=== PATIENT | male | born 1945 | race Caucasian/White ===

== ENCOUNTER 2020-07-27 09:58 | Outpatient (CLI) | payer MEDICARE, SELFPAY | END 2020-07-27 09:59 | disposition home or self-care (01) | LOC: ANHCOVIDVC 09:58 | PROVIDERS: PCP Family Medicine Adolescent Medicine | DX: Z23 Encounter for immunization (principal) | CPT/HCPCS: 0001A; 91300 ==

== ENCOUNTER 2020-08-17 10:01 | Outpatient (CLI) | payer MEDICARE, SELFPAY | END 2020-08-17 10:02 | disposition home or self-care (01) | LOC: ANHCOVIDVC 10:01 | PROVIDERS: PCP Family Medicine Adolescent Medicine | DX: Z23 Encounter for immunization (principal) | CPT/HCPCS: 0002A; 91300 ==

== ENCOUNTER → 2021-12-06 10:39 | Outpatient (CLI) | payer MEDICARE, SELFPAY ==
--- NOTE | ~2021-12-06 | MR_ITS ---
EXAMINATION: MR cervical spine wo con DATE: 12/06/2021 11:14 INDICATION: Bilateral hand weakness. TECHNIQUE: Magnetic resonance imaging (MRI) of the cervical spine was performed without intravenous c ontrast. Sequences included sagittal T2-weighted FSE, sagittal T2-weighted FS FSE, sagittal T1-weight ed FSE, axial MERGE, and axial T2-weighted FSE. COMPARISON: None FINDINGS: There is 9 degrees dextrocurvature of cervicothoracic spine. Vertebral body heights are nor mal. There is severely decreased disc height at C4-C5 and C5-C6 with interbody fusion at C5-C6. The s faith cord signal intensity is normal. The following disc levels are specifically discussed: C2-C3: The disc does not extend beyond the endplate margin. There is no uncovertebral joint osteoarth ritis. There is moderate right and severe left facet joint osteoarthritis. There is mild left neural foraminal stenosis. There is no central canal stenosis. C3-C4: The disc is bulging. There is mild right and moderate left uncovertebral joint osteoarthritis. There is mild right and severe left facet joint osteoarthritis. There is mild left neural foraminal stenosis. There is mild central canal stenosis. C4-C5: The disc is bulging. There is severe bilateral uncovertebral joint osteoarthritis. There is mi ld right and severe left facet joint osteoarthritis. There is moderate right and mild left neural for aminal stenosis. There is mild central canal stenosis. C5-C6: There is moderate bilateral uncovertebral joint hypertrophy. There is mild bilateral facet jami nt osteoarthritis. There is moderate right and mild left neural foraminal stenosis. There is mild claire tral canal stenosis. C6-C7: There is a central extrusion. There is no uncovertebral joint osteoarthritis. There is mild bi lateral facet joint osteoarthritis. There is no neural foraminal stenosis. There is mild central torito l stenosis. C7-T1: There is a central extrusion. There is no uncovertebral joint osteoarthritis. There is moderat e right and severe left facet joint osteoarthritis. There is mild left neural foraminal stenosis. The re is mild central canal stenosis. IMPRESSION: 1. Severe cervical spondylosis. Reviewed, dictated and finalized at location A.
== END ==
PROVIDERS: PCP Family Medicine Adolescent Medicine; Visit Provider Family Medicine Adolescent Medicine
DX: M62.81 Muscle weakness (generalized) (principal); M47.892 Other spondylosis, cervical region
CPT/HCPCS: 72141

== ENCOUNTER 2022-02-02 08:26 | Outpatient (CLI) | payer MEDICARE, SELFPAY ==
--- NOTE | 2022-02-02 11:30 | NEURO_ITS ---
Impression: # Complains of increasing weakness. 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 # Mild right Carpal Tunnel Syndrome. # Mild left ulnar neuropathy across the elbow. # Needle/EMG exam neurogenic without acute fibrillation. # Clinical correlation recommended; Findings compatible with severe axonal neuropathy. Nerve Conduction Studies Anti Sensory Summary Table Stim Site NR Peak (ms) P-T Amp (?V) Site1 Site2 Delta-P (ms) Dist (cm) Gary (m/s) Left Median Anti Sensory (2-3nd Digit) Wrist 4.4 20.9 Wrist 2-3nd Digit 4.4 14.0 32 Wrist 4.3 32.5 Wrist 2-3nd Digit 4.4 14.0 32 Right Median Anti Sensory (2-3nd Digit) Wrist 3.8 23.0 Wrist 2-3nd Digit 3.8 14.0 37 Wrist 3.7 47.6 Wrist 2-3nd Digit 3.8 14.0 37 Left Radial Anti Sensory (Base 1st Digit) Wrist 2.2 21.6 Wrist Base 1st Digit 2.2 0.0 Right Radial Anti Sensory (Base 1st Digit) Wrist 2.1 11.9 Wrist Base 1st Digit 2.1 0.0 Left Ulnar Anti Sensory (5th Digit) Right Ulnar Anti Sensory (5th Digit) Wrist 2.6 24.7 Wrist 5th Digit 2.6 14.0 54 Motor Summary Table Stim Site NR Onset (ms) O-P Amp (mV) Site1 Site2 Delta-0 (ms) Dist (cm) Gary (m/s) Left Median Motor (Abd Poll Brev) Wrist 4.1 0.5 Elbow Wrist 9.7 29.0 30 Elbow 13.8 0.1 Right Median Motor (Abd Poll Brev) Wrist 4.7 1.0 Elbow Wrist 6.0 33.0 55 Elbow 10.7 0.6 Left Ulnar Motor (Abd Dig Minimi) Wrist 3.0 3.8 A Elbow Wrist 7.1 33.0 46 A Elbow 10.1 2.4 B Elbow Wrist 4.3 22.0 51 B Elbow 7.3 2.9 Right Ulnar Motor (Abd Dig Minimi) Wrist 2.9 4.8 A Elbow Wrist 5.9 32.0 54 A Elbow 8.8 3.7 F Wave Studies NR F-Lat (ms) L-R F-Lat (ms) Left Median (Mrkrs) (Abd Poll Brev) DISPERSED RESPONSE NR Right Median (Mrkrs) (Abd Poll Brev) 33.10 Left Ulnar (Mrkrs) (Abd Dig Min) DISPERSED RESPONSE NR Right Ulnar (Mrkrs) (Abd Dig Min) 34.45 EMG Side Muscle Nerve Root Ins Act Fibs Amp Dur Recrt Comment Right 1stDorInt Ulnar C8-T1 Nml Nml Nml Nml Reduced Right Ext Indicis Radial (Post Int) C7-8 Nml Nml Nml Nml Reduced Right Ext Digitorum Radial (Post Int) C7-8 Nml Nml Nml Nml Reduced Right BrachioRad Radial C5-6 Nml Nml Nml Nml Reduced Right PronatorTeres Median C6-7 Nml Nml Nml Nml Reduced Right Abd Poll Brev Median C8-T1 Nml Nml Nml Nml Reduced Left 1stDorInt Ulnar C8-T1 Nml Nml Nml Nml Reduced Left Ext Indicis Radial (Post Int) C7-8 Nml Nml Nml Nml Reduced Left Ext Digitorum Radial (Post Int) C7-8 Nml Nml Nml Nml Reduced Left BrachioRad Radial C5-6 Nml Nml Nml Nml Reduced Left PronatorTeres Median C6-7 Nml Nml Nml Nml Reduced Left Abd Poll Brev Median C8-T1 Nml Nml Nml Nml Reduced MTDD
== END 2022-02-02 08:27 | disposition home or self-care (01) ==
PROVIDERS: PCP Family Medicine Adolescent Medicine; Visit Provider Family Medicine Adolescent Medicine
DX: R53.1 Weakness (principal); G56.01 Carpal tunnel syndrome, right upper limb; G56.22 Lesion of ulnar nerve, left upper limb
CPT/HCPCS: 95886; 95911

== ENCOUNTER → 2022-02-16 09:05 | Outpatient (CLI) | payer MEDICARE, SELFPAY ==
--- NOTE | ~2022-02-16 | MR_ITS ---
EXAMINATION: MR lumbar spine wo con DATE: 02/16/2022 10:13 INDICATION: Muscle atrophy. Weakness. TECHNIQUE: Magnetic resonance imaging (MRI) of the lumbar spine was performed without intravenous con trast. Sequences included sagittal T2-weighted FSE, sagittal T2-weighted FS FSE, sagittal T1-weighted FSE, and axial T2-weighted FSE. COMPARISON: None FINDINGS: There is 6 degrees levocurvature of thoracolumbar spine. There is 3 mm retrolisthesis of L1 on L2, L2 on L3, and L3 on L4. There is mild chronic anterior wedging of T11 and T12 vertebral maria r s. There is moderately decreased disc height at L1-L2, mildly decreased disc height at L2-L3, severel y decreased disc height at L3-L4, and mildly decreased disc height at L4-L5 and L5-S1. The distal spi nal cord signal intensity is normal. The conus medullaris is at L1. The following disc levels are spe cifically discussed: L1-L2: The disc is bulging and has an annular fissure. There is mild bilateral facet joint osteoarthr itis. There is mild bilateral neural foraminal stenosis. There is mild central canal stenosis. L2-L3: The disc is bulging and has an annular fissure. There is mild bilateral facet joint osteoarthr itis. There is mild bilateral neural foraminal stenosis. There is mild central canal stenosis. L3-L4: The disc is bulging and has an annular fissure. There is mild right and severe left facet join t osteoarthritis. There is moderate bilateral neural foraminal stenosis. There is mild central canal stenosis. L4-L5: The disc is bulging and has an annular fissure. There is severe bilateral facet joint osteoart hritis. There is mild right and moderate left neural foraminal stenosis. There is mild central canal stenosis. L5-S1: The disc is bulging and has an annular fissure. There is severe bilateral facet joint osteoart hritis. There is mild bilateral neural foraminal stenosis. There is mild central canal stenosis. IMPRESSION: 1. Severe lumbar spondylosis. Reviewed, dictated and finalized at location A.
--- NOTE | ~2022-02-16 | MR_ITS ---
EXAMINATION: MR thoracic spine wo con DATE: 02/16/2022 10:12 INDICATION: Muscle atrophy. Weakness. TECHNIQUE: Magnetic resonance imaging (MRI) of the thoracic spine was performed without intravenous c ontrast. Sagittal localizer T1-weighted FSE of the cervical spine was obtained. Thoracic spine sequen gustavo included sagittal T2-weighted FSE, sagittal T1-weighted FSE, sagittal T2-weighted FS FSE, and axi al T2-weighted FSE. COMPARISON: None FINDINGS: There is 15 degrees levoscoliosis of upper thoracic spine. There is mild chronic anterior w edging of T7, T8, T11, and T12 vertebral bodies. There is mildly decreased disc height at T8-T9. At C 7-T1, there is a central extrusion with mild central canal stenosis. At T4-T5, there is a right centr al extrusion with mild central canal stenosis. At T5-T6, there is a central extrusion with mild centr al canal stenosis. There is multilevel facet joint osteoarthritis, severe on the right at T2-T3. On t he right, there is mild neural foraminal stenosis at T2-T3 and T3-T4. On the left, there is mild neur al foraminal stenosis at T2-T3. The spinal cord signal intensity is normal. IMPRESSION: 1. Mild thoracic spondylosis. 2. Thoracic levoscoliosis. Reviewed, dictated and finalized at location A.
--- NOTE | ~2022-02-16 | MR_ITS ---
EXAMINATION: MR brain/brain stem wo con DATE: 02/16/2022 10:12 INDICATION: Muscle atrophy. Weakness. TECHNIQUE: Magnetic resonance imaging (MRI) of the brain and brainstem was performed without intraven ous contrast. COMPARISON: None. FINDINGS: There is an acute infarct in the katty on the left with involvement of the corticospinal tra cts. There are scattered areas of nonspecific increased T2-weighted signal intensity in the cerebral white matter. There is no intracranial hemorrhage or abnormal mass lesion. There is an old infarct in left parietal lobe. The ventricles are normal in size. There is mucosal thickening in the paranasal sinuses. There is complete opacification of sphenoid sinus and the left posterior ethmoid sinuses. Th e orbits are normal. There is a small left mastoid effusion. IMPRESSION: 1. Acute infarct in the katty on the left. 2. 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 3. Moderate nonspecific cerebral white matter disease, which likely represents chronic small vessel i schemic disease. Reviewed, dictated and finalized at location A. IMPRESSION: 1. Acute infarct in the katty on the left. 2. 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 3. Moderate nonspecific cerebral white matter disease, which likely represents chronic small vessel ischemic disease.
== END ==
PROVIDERS: PCP Family Medicine Adolescent Medicine; Visit Provider Student in an Organized Health Care Education/Training Program
DX: M62.81 Muscle weakness (generalized) (principal); M47.894 Other spondylosis, thoracic region; M47.896 Other spondylosis, lumbar region; R93.0 Abnormal findings on diagnostic imaging of skull and head, not elsewhere classified
CPT/HCPCS: 70551; 72146; 72148

== ENCOUNTER → 2022-02-24 10:03 | Outpatient (CLI) | payer MEDICARE, SELFPAY ==
--- NOTE | ~2022-02-24 | CT_ITS ---
EXAMINATION: CTA brain carotid DATE: 02/24/2022 11:13 INDICATION: Acute stroke. TECHNIQUE: Computed tomographic angiography (CTA) of the head was performed without and with 100 mL O [id number] intravenous contrast. CTA of the neck was performed with intravenous contrast. Automated exposure control and iterative reconstruction technique were employed. The dose-length product was 1 679.56 mGy-cm. Maximum intensity projection and volume rendered 3D-reconstructions were created by mile nuñez technologist on a separate workstation. COMPARISON: Brain MRI 02/16/2022 FINDINGS: HEAD CTA: There are scattered areas of low attenuation in the cerebral white matter. There is a subac [place] infarct in the katty. There is a small old infarct in left parietal lobe. There is no intracranial hemorrhage or abnormal intracranial mass lesion. The ventricles are normal in size. There is mucosal thickening in the paranasal sinuses including complete opacification in sphenoid sinus and the poste rior left ethmoid sinuses. The mastoid air cells are normal. The orbits are normal. The vertebral art eries are codominant. There is no significant stenosis of basilar artery or the posterior cerebral ar teries. There is no significant stenosis of the intracranial internal carotid arteries or anterior or middle cerebral arteries. Anterior communicating artery is normal. The posterior communicating arter ies are normal. There is no aneurysm. NECK CTA: There are no pathologically enlarged lymph nodes. There is no significant stenosis of the v ertebral arteries. There is plaque in the proximal internal carotid arteries. There is 0% stenosis of the proximal right internal carotid artery relative to normal distal artery lumen diameter (NASCET c riteria). There is 10% stenosis of the proximal left internal carotid artery relative to normal dista l artery lumen diameter. There is severe cervical spondylosis. There is interbody fusion at C5-C6. IMPRESSION: 1. Subacute infarct in the katty. 2. 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 3. Moderate nonspecific cerebral white matter disease, which likely represents chronic small vessel i schemic disease. 4. No aneurysm or significant intracranial arterial stenosis. 5. 0% stenosis of the proximal right internal carotid artery relative to normal distal artery lumen d iameter (NASCET criteria). 6. 10% stenosis of the proximal left internal carotid artery relative to normal distal artery lumen d iameter. Reviewed, dictated and finalized at location A. ION PLANNER IMPRESSION: 1. Subacute infarct in the katty. 2. 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 3. Moderate nonspecific cerebral white matter disease, which likely represents chronic small vessel ischemic disease. 4. No aneurysm or significant intracranial arterial stenosis. 5. 0% stenosis of the proximal right internal carotid artery relative to normal distal artery lumen diameter (NASCET criteria). 6. 10% stenosis of the proximal left internal carotid artery relative to normal distal artery lumen diameter.
[2022-02-24 10:33] LABS: Estimated Glomerular Filt Rate 59
== END ==
PROVIDERS: PCP Family Medicine Adolescent Medicine; Visit Provider Student in an Organized Health Care Education/Training Program
DX: I63.9 Cerebral infarction, unspecified (principal); I65.22 Occlusion and stenosis of left carotid artery
CPT/HCPCS: 70496; 70498; Q9967

== ENCOUNTER 2022-02-28 14:14 | Outpatient (CLI) | payer MEDICARE, SELFPAY ==
--- NOTE | 2022-02-28 14:32 | ECHO_ITS ---
Patient Info Name: Tayo Rose Age: 76 years : 1945 Gender: Male Ht: 71 in Wt: 210 lbs BSA: 2.21 m2 HR: 50 bpm BP: 159 / 95 mmHg Heart Rhythm: Sinus Rhythm Technical Quality: Fair Exam Date: 02/28/2022 2:33 PM Exam Location: [facility] Patient Status: Outpatient Admit Date: 02/28/2022 Staff Ordering Physician: Sally Trevino MD Sewer Bricklayer: Candace Johnson RDCS Attending Provider: Sally Trevino MD Exam Type: CA echo doppler w bubble study Study Info Indications - acute stroke Complete two-dimensional, color flow and Doppler transthoracic echocardiogram is performed. Contrast/Agitated Saline Contrast/Ag. Saline: Agitated Saline Amount: 20.00 ml Existing IV Access: Yes IV Access Condition: patent with no signs of infiltration Summary 1. Complete two-dimensional, color flow and Doppler transthoracic echocardiogram is performed. 2. Left ventricular chamber dimension is normal. 3. Left ventricular systolic function is normal, estimated at 60-65%. 4. The left ventricular diastolic function is grade I diastolic dysfunction. 5. E/e' 11 is mildly elevated. 6. Left atrial chamber dimension is mildly enlarged. 7. There is mild aortic valve sclerosis. 8. There is mild mitral valve regurgitation. 9. There is mild tricuspid valve regurgitation. 10. No pulmonary hypertension, estimated pulmonary arterial systolic pressure is 31 mmHg. Left Ventricle E/e' 11 is mildly elevated. Left ventricular chamber dimension is normal. Left ventricular systolic function is normal, estimated at 60-65%. The left ventricular diastolic function is grade I diastolic dysfunction. Right Ventricle Right ventricular systolic function is normal and with normal TAPSE 2.3 cm. Right ventricular chamber dimension is normal. Left Atria Left atrial chamber dimension is mildly enlarged. Right Atria Right atrial chamber dimension is normal. Atrial Septum Agitated saline injection with and without valsalva maneuver opacified right side cardiac chambers without shunt to left side cardiac chambers. Intact interatrial septum visualized by 2D and agitated saline imaging. Aortic Valve The aortic valve is trileaflet. There is mild aortic valve sclerosis. There is no aortic valve stenosis. There is no aortic valve regurgitation. Pulmonic Valve There is no pulmonic regurgitation. Mitral Valve There is no mitral valve stenosis. There is mild mitral valve regurgitation. Tricuspid Valve There is mild tricuspid valve regurgitation. No pulmonary hypertension, estimated pulmonary arterial systolic pressure is 31 mmHg. Pericardium/Pleural There is no pericardial effusion. Inferior Vena Cava Normal inferior vena cava with >50% collapse upon inspiration consistent with normal right atrial pressure, 5 mmHg. Aorta The aortic root size at the sinus of Valsalva is normal. Left Ventricular Outflow Tract Name Value Normal LVOT 2D LVOT Diameter 2.0 cm LVOT Doppler LVOT Peak Gradient 4 mmHg LVOT Mean Gradient
--- NOTE | 2022-02-28 15:15 | ECG_ITS ---
Measurements Intervals [place] Rate: 51 P: 30 KS: 173 QRS: -1 QRSD: 108 T: 33 QT: 444 QTc: 411 Interpretive Statements SINUS BRADYCARDIA BORDERLINE R WAVE PROGRESSION, ANTERIOR LEADS INFERIOR INFARCT, AGE INDETERMINATE BORDERLINE ST ABNORMALITY- HIGH LATERAL LEADS ABNORMAL ECG NO PREVIOUS ECG AVAILABLE FOR COMPARISON Electronically Signed On 02-28-2022 16:54:46 CIRCULATION SUPERVISOR by Hair Marley D.O.
== END 2022-02-28 14:15 | disposition home or self-care (01) ==
PROVIDERS: PCP Family Medicine Adolescent Medicine; Visit Provider Student in an Organized Health Care Education/Training Program
DX: I63.9 Cerebral infarction, unspecified (principal); R94.31 Abnormal electrocardiogram [ECG] [EKG]; I34.0 Nonrheumatic mitral (valve) insufficiency; I36.1 Nonrheumatic tricuspid (valve) insufficiency
CPT/HCPCS: 93005; 93306; 96375

== ENCOUNTER 2022-05-05 10:20 | Outpatient (CLI) | payer MEDICARE, SELFPAY ==
--- NOTE | ~2022-05-05 | XR_ITS ---
Bilateral Hands Technique: Bilateral PA, oblique, and lateral views, and ball-catcher's view were obtained. Clinical History: Abnormal immunological findings Findings: No acute fracture or dislocation is seen. Mild degenerative change of the DIP joints noted diffusely, worst at the bilateral first and fifth DIP joints.. Soft tissues are unremarkable. Impression: Osteoarthritis of the DIP joints bilaterally, as detailed above. Reviewed, dictated and finalized at location M. N FACTORS ENGINEER Impression: Osteoarthritis of the DIP joints bilaterally, as detailed above.
--- NOTE | ~2022-05-05 | XR_ITS ---
XR cervical spine 4-5V DATE: 05/05/2022 10:50 INDICATION: Muscle atrophy, weakness TECHNIQUE: AP, open-mouth, lateral, swimmer views COMPARISON: 12/06/2021 MR cervical spine FINDINGS: There is levoscoliosis of the cervical and upper thoracic spine. C1 and C2 are normally aligned and the odontoid process is intact. There is moderate loss of interspace height at C4-5 and severe loss of interspace height at C5-6. No fracture or dislocation or locked facet or prevertebral soft tissue swelling. There is uncovertebral joint spurring in the mid and lower cervical spine. There is degenerative arrington ge at the apophyseal joints. Degenerative spurring of the thoracic spine. Surgical clips are noted in the lower anterior neck right of midline. IMPRESSION: Cervical spondylosis Levoscoliosis Reviewed, dictated and finalized at location B. ARCHITECT
[2022-05-05 11:01] LABS: Uric Acid 4.3 mg/dL (3.5-8.5)
[2022-05-05 11:57] LABS: Vitamin D 25 Hydroxy 31.9 ng/mL
[2022-05-08 20:56] LABS: SM Antibody <1.0; SM/RNP Antibody <1.0
[2022-05-09 21:10] LABS: Anti Cyclic Citrullinated Pept <16 Units (<20)
[2022-05-10 12:29] LABS: Hexagonal Phase Confirm Negative (Negative); Lupus dRVVT Screen 42 sec (<=45); PTT-LA Screen 41 sec (<=40)
== END 2022-05-05 10:21 | disposition home or self-care (01) ==
PROVIDERS: PCP Family Medicine Adolescent Medicine; Visit Provider Internal Medicine
DX: M47.812 Spondylosis without myelopathy or radiculopathy, cervical region (principal); M47.816 Spondylosis without myelopathy or radiculopathy, lumbar region; R76.8 Other specified abnormal immunological findings in serum; M19.90 Unspecified osteoarthritis, unspecified site; E55.9 Vitamin D deficiency, unspecified; M19.041 Primary osteoarthritis, right hand; M19.042 Primary osteoarthritis, left hand
CPT/HCPCS: 36415; 72050; 73130; 82306; 84550; 85598; 85613; 85730; 86146; 86200; 86225; 86235

== ENCOUNTER 2023-04-18 13:15 | Outpatient (RCR) | payer MEDICARE, SELFPAY ==
[2023-03-21 10:17] VITALS: BP_SYST 80; BP_SYST 90
--- NOTE | 2023-03-21 11:48 | OPREHPOC ---
Outpatient Therapy Plan of Care This is a Multidisciplinary Plan of Care that may contain components documented by all disciplines (PT, OT, and ST.) OT Problem 1 OT Problem #1 Knowledge Deficit OT Goal 1 Goal 1. Patient/spouse to be independent with instructed materials. Target Visit 5 OT Problem 2 OT Problem #2 Impaired Functional ADLs OT Goal 1 Goal 1. Patient to report increased independence with self-feeding with AE/DME. 2. Patient to report increased independence with bathing and shower transfers with AE/DME. Target Visit 5 OT Problem 3 OT Problem #3 Impaired Strength OT Goal 1 Goal 1. Patient to be able to complete x20 reps of the elbow, forearm, wrist, and hand ROM exercises independently. Target Visit 5
--- NOTE | 2023-03-21 11:48 | OTOPEVAL1 ---
Assessment and note entered by Deven Quiroga, OTR/L, CHT Evaluation Information Diagnosis ALS Subjective Information Patient reports ADL decline due to progressive UE weakness. Reports it's been getting more difficult to reach his face to groom and feed himself. He is right handed. They also report difficulties with showers - getting in/out of the shower, sit/ stands from the shower chair. They have ordered a new shower chair that is higher with arms - have not received it yet. helps with dressing, shaving, and bathing. reports he's had 2 falls in the past month. Reported Pain Level Pain Score 0: Self Report Assessment OT Clinical Summary Patient referred to OT with dx of ALS. He has been experiencing a decline in ADL independence due to progressive weakness. Skilled OT indicated for education on ADL modifications, adaptive equipment , and DME recommendations. Patient also has had multiple falls in the last month. Will be requesting PT orders as well. Plan of Care Interventions Therapeutic Exercise,Therapeutic Activities,Self- Care/Home Management OT Services Indicated Yes Treatment Frequency and 1x/week for 4 weeks Duration These treatments will address the objective and functional deficits as defined above. The patient will be advanced safely and appropriately in order for the patient to progress towards his/her prior level of function. Additional exercises will be introduced and as well as a comprehensive home exercise program upon discharge, if needed, ?to ensure carryover of functional gains achieved in the clinic. This treatment plan has been reviewed and agreement upon by the patient.
[2023-04-18 13:22] VITALS: BP_SYST 90
--- NOTE | 2023-04-18 14:18 | OTOPDC ---
Assessment and note entered by NISREEN Shaikh/Artem, T Discharge Notification 04/18/23 Assessment Status Discharge Diagnosis ALS Subjective Information Patient and his report they have a shower chair with arms for the shower now, but they just got it put together and he has not used it. He is using adaptive equipment for feeding (built up utensil handles). He reports he continues to struggle with self feeding, dressing, and sit/ stand transfers. Reported Pain Level Pain Score 0: Self Report Assessment OT Clinical Summary Patient referred to OT with dx of ALS. Adaptive techniques for feeding, dressing, bathing, toileting have been addressed and recommendations for adaptive equipment have been discussed. Patient's has purchased a few items so far. Discussed various functional activities for patient to continue to preserve what function he has. Patient and his verbalize good understanding of all materials. D/C OT. Plan of Care OT Services Indicated No
== END 2023-06-04 09:30 | disposition home or self-care (01) ==
LOC: ANHOT 13:15
PROVIDERS: PCP Family Medicine Adolescent Medicine; Visit Provider Family Medicine Adolescent Medicine
DX: G12.21 Amyotrophic lateral sclerosis (principal)
CPT/HCPCS: 97110; 97165; 97530; 97535

== ENCOUNTER 2023-11-21 16:25 | Inpatient (IN) | payer MEDICARE, SELFPAY ==
[2023-11-21] VITALS (21 sets, daily range): BP systolic 130–152; BP diastolic 68–89; PULSE 72–83; RESP 16–39; TEMP 35.8–36.3; O2SAT 90–96
--- NOTE | ~2023-11-21 | XR_ITS ---
EXAMINATION: XR chest 1V portable DATE: 11/23/2023 14:58 INDICATION: Shortness of breath. TECHNIQUE: A single frontal view of the chest was obtained. COMPARISON: Chest 2 views 11/21/2023, CT abdomen and pelvis 11/21/2023 FINDINGS: There is mild elevation of right hemidiaphragm. There is mild atelectasis in the lower lung zones. No pleural effusion or pneumothorax. The heart size is normal. There are surgical clips in ri ght neck. Surgical clips in the right upper quadrant are likely from cholecystectomy. IMPRESSION: 1. Mild atelectasis in the lower lung zones. Reviewed, dictated and finalized at location A.
--- NOTE | ~2023-11-21 | CT_ITS ---
CT abdomen pelvis wo con Ordering provider: Beckie Frazier PA-C History: 78 years Male with . hematuria, r/o obstructive uropathy . Comparison: February 05, 2018 Technique: CT abdomen and pelvis without oral IV and without oral contrast. Automated exposure contro l and iterative reconstruction technique were employed. The dose-length product was 866.42 mGy-cm. Findings: VISUALIZED LOWER CHEST: Minimal atelectatic changes in the lung bases. Narrowing of the bronchi which may indicate bronchomalacia. UPPER ABDOMINAL ORGANS: Liver: Normal. Gallbladder: Status post cholecystectomy. Spleen: Normal. Stomach/duodenum: Slightly thickened wall of the stomach. Clinical evaluation advised. Pancreas: Normal. Adrenals: Normal. Kidneys: Right kidney upper pole stones with the largest measures 7 mm. No hydronephrotic changes see n bilaterally. No stones in the left side. PELVIC ORGANS: The bladder shows tiny stones near to the ureterovesical junction on the right side. Slightly enlarged prostate. BOWEL AND MESENTERY: Colon: Mild sigmoid diverticulosis without diverticulitis. Fecal material is loaded in the colon sugg estive of constipation.No evidence of appendicitis. Small Bowel: Normal. No obstruction. Peritoneum/mesentery: No free air or free fluid. No mesenteric lymphadenopathy. RETROPERITONEUM: Mild atheromatous disease of the abdominal aorta. No retroperitoneal lymphadenopat hy. MUSCULOSKELETAL: Superficial soft tissues: Bilateral fat containing inguinal hernias. Otherwise, The superficial soft tissues are normal. Bones: Age appropriate degenerative changes of the spine. IMPRESSION: 1. Right kidney stones with no hydronephrotic changes. 2. Urinary bladder stones near to the right ureterovesical junction. Possibility of a stone in the i ntramural ureter cannot be excluded. 3. Constipation. 4. Minimal atelectatic changes in the lung bases. Reviewed, dictated and finalized at location A. IMPRESSION: 1. Right kidney stones with no hydronephrotic changes. 2. Urinary bladder stones near to the right ureterovesical junction. Possibili ty of a stone in the intramural ureter cannot be excluded. 3. Constipation. 4. Minimal atelectatic changes in the lung bases.
--- NOTE | ~2023-11-21 | XR_ITS ---
XR chest 2V Ordering provider: John Sanchez MD History: 78 years Male with . sob, ALS . Comparison: July 04, 2016 FINDINGS: MEDIASTINUM: The cardiac silhouette is not enlarged. LUNGS: No infiltrates, effusions or pneumothorax. OTHER: No free air under the diaphragm. Degenerative changes of the spine. IMPRESSION: No acute cardiopulmonary pathology. Reviewed, dictated and finalized at location A.
--- NOTE | 2023-11-21 16:31 | ECG_ITS ---
Test Date: 2023-11-21 16:49:05 Measurements Intervals [place] Rate: 73 P: 5 CT: 142 QRS: -28 QRSD: 92 T: 22 QT: 387 QTc: 429 Interpretive Statements SINUS RHYTHM POSSIBLE ANTERIOR MYOCARDIAL INFARCTION , OF INDETERMINATE AGE [30 ms Q WAVE IN V3/V4, OR R < 0.2 mV IN V4] INFERIOR MYOCARDIAL INFARCTION , OF INDETERMINATE AGE [40+ ms Q WAVE AND/OR ST/T ABNORMALITY IN II/aVF] No previous ECG available for comparison Electronically Signed On 11-21-2023 17:17:08 CDT by Hair Rodarte M.D.
[2023-11-21 18:53] LABS: Basophils Absolute Auto 0.1 K/mm3 (0.0-0.1); Basophils Percent Auto 0.7 % (0.2-1.2); Eosinophils Absolute Auto 0.2 K/mm3 (0-0.3); Eosinophils Percent Auto 1.9 % (0-4.4); Hematocrit 49.5 % (42.0-52.0); Hemoglobin 16.2 g/dL (14.0-18.0); Immature Granulocyte Absolute 0.06 K/mm3 (0.00-0.031); Immature Granulocyte Percent A 0.6 % (0-0.5); Lymphocytes Absolute Auto 1.22 K/mm3 (0.9-3.2); Lymphocytes Percent Auto 12.6 % (18.3-44.2); Mean Corpuscular HGB Conc 32.7 g/dl (32-36); Mean Corpuscular Hemoglobin 29.9 pg (26-34); Mean Corpuscular Volume 91.5 fl (80-100); Mean Platelet Volume 11.1 fl (7.4-10.4); Monocytes Absolute Auto 1.2 K/mm3 (0.1-0.6); Monocytes Percent Auto 12.3 % (2.6-8.5); Neutrophils Absolute Auto 6.9 K/mm3 (1.3-6.7); Neutrophils Percent Auto 71.9 % (45.5-73.1); Platelet Count Result 299 k/mm3 (150-375); Red Blood Count 5.41 M/mm3 (4.6-6.20); Red Cell Distribution Width 12.4 % (11.5-14.5); White Blood Count 9.7 K/mm3 (4.5-10.0)
[2023-11-21 19:02] LABS: Alanine Aminotransferase 47 U/L (6-50); Albumin Level 4.2 g/dL (3.5-5.1); Alkaline Phosphatase 79 U/L (38-126); Anion Gap 15 mmol/L (4-12); Aspartate Amino Transferase 43 U/L (17-59); Bilirubin,Total 1.3 mg/dL (0.2-1.3); Blood Urea Nitrogen 34 mg/dL (9-20); Calcium 10.9 mg/dL (8.4-10.2); Carbon Dioxide 28 mmol/L (22-30); Chloride 101 mmol/L (98-107); Estimated Glomerular Filt Rate > 60; Glucose 180 mg/dL (65-110); Potassium 4.3 mmol/L (3.4-5.0); Sodium 144 mmol/L (137-145)
--- NOTE | 2023-11-21 19:08 | ED.SOB ---
HPI - SOB/Dyspnea General Chief Complaint: Shortness of Breath/Dyspnea Stated Complaint: SOB Time Seen by Provider: 11/21/23 18:38 History of Present Illness HPI Narrative: 78-year-old male with history of hepatic steatosis, GERD, hypertension, type 2 diabetes, CAD, hyperlipidemia, ALS presents to the emergency department with his and daughter at bedside for generalized weakness and shallow breathing for 3 days. Patient's family assist with history. states his neurologist is Dr. Trevino and his ALS specialist is Dr. Lopez at [facility]. he was diagnosed with ALS approximately 1 year ago at [facility] and over the past 3 months has rapidly decline. States approximately 1 week ago patient was able to use a walker and ambulate but has been bed-bound for 1 week. He is having difficulty moving his extremities and states over the past 3 days he has had difficulty breathing. States it is especially worse when he exerts himself and lays flat. He denies chest pain, cough or congestion, fever, N/V/D, abdominal pain, dysuria or hematuria. Patient lives at home with his who is his primary presser machine. They do not have any home health or assistance. Patient's daughter is desiring to inquire about home health care. patient's daughter also states that the patient has seemed confused over the past couple days and has been having visual hallucinations. She is concerned he may have urinary tract infection. I did have a long discussion with patient and family at bedside regarding goals of care today given concerns for progression of ALS. They are desiring full workup and treatment. Patient would like to be full code. Related Data Home Medications Medication Instructions Recorded Confirmed magnesium oxide 400 mg PO DAILY 05/10/21 03/02/23 cetirizine 10 mg capsule (Zyrtec) 10 mg PO BID PRN 07/11/21 03/02/23 eulevlbupcn-zjmcemhga-[id number] C-Mn 500 1 cap PO BID 11/28/21 03/02/23 mg-400 mg capsule (Glucosamine Chondroitin Maximum Strength) aspirin 81 mg tablet,delayed 81 mg PO DAILY 05/30/22 03/02/23 release (Adult Low Dose Aspirin) Allergies Allergy/AdvReac Type Severity Reaction Status Date / Time niacin Allergy Intermediate hives Verified 11/21/23 16:26 indomethacin AdvReac Intermediate abdominal Verified 11/21/23 16:26 pains lisinopril AdvReac Intermediate cough Verified 11/21/23 16:26 Clopidogrel Allergy Mild Hives Uncoded 11/21/23 16:26 Review of Systems Review of Systems: All systems reviewed & are unremarkable except as noted in HPI and below PMFSH Past Medical History Medical History Degenerative joint disease of cervical and lumbar spine Hx of gastric ulcer Normal colonoscopy 09/01 Stroke Vitamin D deficiency, unspecified Surgical History Surgical History History of carpal tunnel surgery History of cholecystectomy 2007 History of tonsillectomy Family History Family History (Updated 11/22/23 @ 01:25 by Kathryn Lawson) Father Acute myocardial infarction Parkinsons Mother Family history of coronary artery disease Diabetes mellitus Other Parkinsons Social History Social History Smoking status: Never smoker Second hand tobacco smoke exposure: No Alcohol intake: current Substance use: never Substance use type: does not use Do You Feel Safe in your Home?: Yes Lack of Transportation: No Lack of Food: Never True Current Housing: I Have Housing Concerned About Future Housing: No Difficulty Paying Gas/Electric Bills: No Difficulty Paying for Meds: No Currently Unemployed: No Education: High School Diploma/GED Difficulty w/ Childcare or Family Care: No Living arrangements: with family Occupation/Education: retired Gender identity (if verbalized by the patient): Male Sexual Orientation (if Verbalized by the
[2023-11-21 19:37] LABS: Magnesium 1.5 mg/dL (1.6-2.3)
[2023-11-21 19:41] LABS: INR 1.1; Prothrombin Time 14.6 Seconds (11.1-14.7)
[2023-11-21 19:42] LABS: Partial Thromboplastin Time 36.3 Seconds (22.3-36.8)
[2023-11-21] MEDS: SODIUM CHLORIDE 0.9% IV 1,000 ML 999 ML IV CONT (19:46)
[2023-11-21 19:50] LABS: NT Pro B Type Natriuretic Pept 744 pg/mL (19.9-100); Troponin I < 0.012 ng/mL (0.000-0.034)
[2023-11-21 20:05] LABS: D Dimer 0.44 ug/mL (<0.48)
[2023-11-21 20:11] LABS: Add Urine Microscopic? YES; Appearance Urine Turbid (Clear); Bacteria Urine 4+ /hpf; Bilirubin Urine 2+ (Negative); Blood Urine 2+ (Negative); Color Urine Dark Yellow (Yellow); Glucose Urine UA Negative (Negative); Ketones Urine Trace mg/dL (Negative); Leukocyte Esterase Ur 3+ LEU/UL (Negative); Need Manual Microscopic Reviewed; Nitrate Urine Negative (Negative); Non Pathogenic Casts >20; Protein Urine 2+ mg/dL (Negative); RBC Urine 51-100 /hpf (0-2); Specific Grav Ur 1.033 (1.001-1.035); Squamous Epithelial Cell Urine Many /hpf (Few); WBC Urine >100 /hpf (0-3)
[2023-11-21 20:22] LABS: Influenza A QL RT-PCR Negative (Negative); Influenza B QL RT-PCR Negative (Negative); RSV RNA, RT-PCR Negative (Negative); SARS-CoV-2 RNA PCR Negative (Negative)
[2023-11-21] MEDS: MAGNESIUM SULF 1 GM/D5W 100 ML 1 GM/100 ML BAG IVPB (20:48)
--- NOTE | 2023-11-21 21:20 | PC.NURSE ---
EDP notified that abx started prior to blood cultures drawn. She will reach out to hospitalist to notify them.
[2023-11-21 23:42] LABS: Alveolar/Arterial O2 Gradient 35.8 mmHg; Base Excess ABG -1.1 mEq/l (+/-2.0); Fractional Inspired Oxygen 21 %; HCO3 ABG 24.9 mEq/l (22.0-26.0); Oxygen Content ABG 17.9 %vol (16.0-22.0); Oxygen Saturation ABG 89.1 % (95.0-100.0); PCO2 ABG 46.1 mmHg (35.0-45.0); PO2 ABG 58.7 mmHg (80.0-100.0); Total Hemoglobin 14.6 g/dL (12.0-18.0)
[2023-11-21 23:44] LABS: Modified Allen's Test Pass; Oxyhemoglobin 87.2 % THb (90.0-100.0); Site Drawn RIGHT RADIAL
[2023-11-22] VITALS (14 sets, daily range): BP systolic 119–173; BP diastolic 70–89; PULSE 64–95; RESP 17–29; TEMP 36.3–37.8; O2SAT 90–95; BMI 23.4
[2023-11-22] MEDS: SODIUM CHLORIDE 0.9% IV 1,000 ML 100 ML IV CONT (00:26)
--- NOTE | 2023-11-22 01:09 | ADMGEN ---
This patient, Tayo Rose, was admitted to [facility] Surg Room 305-02 at 0100. Patient/family oriented to hospital policies and general routines including ID bracelet, bed and alarms, visiting hours, pain management, procedures, bathroom and other care routines, personal items, smoking policy, room service/diet, and visiting hours. Information on how to activate the Rapid Response Team has been discussed. Patient/Family are encouraged to report perceived risks to care and to ask questions if they do not understand what they are told or what they should do.
--- NOTE | 2023-11-22 04:38 | PC.NURSE ---
Per report from [employer] EXECUTIVE DIRECTOR and RT, BiPAP was tried and patient could not tolerate it. bipap is in room per orders, but patient remains on room air.
--- NOTE | 2023-11-22 07:09 | WPDURCON ---
Assessment and Plan Assessment and plan (1) Right renal stone: Code(s): N20.0 - Calculus of kidney Status: Acute (2) Bladder stones: Code(s): N21.0 - Calculus in bladder Status: Acute Assessment and Plan: This patient has a his nonobstructing 7 mm right renal stone that is likely a little clinical significance. With his other significant medical issues I would not recommend intervention (i.e. ESWL ) for this stone at this time. He does not appear to have a small stone in his distal right ureter as suggested by the radiologist. Instead I think he has 2 very small bladder stones which are of no significance. he small bladder stones may be indicative of incomplete emptying secondary due to BPH. The only thing I might recommend, from urological standpoint, would be adding tamsulosin for BPH. I anticipate no need for further intervention from our standpoint Urology Consult Note HPI Date Seen: 11/22/23 Requesting Physician: Kasia Venegas APRN Primary Care Provider: Michael Pollock MD Consult Narrative Narrative: Tayo Rose is a 78 year old male who is unknown to our practice. He has a history of ALS that has progressed significantly over the past 3 months. He is admitted with generalized weakness and shortness of breath. During the course of evaluation in the emergency department he was noted to have micro hematuria. CT scan of the abdomen and pelvis reveals a 7 mm nonobstructing stone in his right kidney. Radiologist felt there was possibly a small stone in his distal right ureter but by my review appears to have 2 very tiny bladder stones without true ureteral stones. There is no right ureteral obstruction and the patient has no renal/ureteral colic. Review of Systems Review of Systems: All systems reviewed & are unremarkable except as noted in HPI and below PMFSH Past Medical History Medical History Degenerative joint disease of cervical and lumbar spine Hx of gastric ulcer Normal colonoscopy 09/01 Stroke Vitamin D deficiency, unspecified Surgical History Surgical History History of carpal tunnel surgery History of cholecystectomy 2007 History of tonsillectomy Family History Family History (Updated 11/22/23 @ 01:25 by Kathryn Lawson) Father Acute myocardial infarction Parkinsons Mother Family history of coronary artery disease Diabetes mellitus Other Parkinsons Social History Social History Smoking status: Never smoker Second hand tobacco smoke exposure: No Alcohol intake: current Substance use: never Substance use type: does not use Do You Feel Safe in your Home?: Yes Lack of Transportation: No Lack of Food: Never True Current Housing: I Have Housing Concerned About Future Housing: No Difficulty Paying Gas/Electric Bills: No Difficulty Paying for Meds: No Currently Unemployed: No Education: High School Diploma/GED Difficulty w/ Childcare or Family Care: No Living arrangements: with family Occupation/Education: retired Gender identity (if verbalized by the patient): Male Sexual Orientation (if Verbalized by the Patient): Straight or Heterosexual Spiritual care concerns: No Agree to blood products: Yes Meds Home Medications and Allergies Home Medications Medication Instructions Recorded Confirmed Type magnesium oxide 400 mg PO DAILY 05/10/21 11/22/23 History cetirizine 10 mg capsule (Zyrtec) 10 mg PO BID PRN seasonal allergies 07/11/21 11/22/23 History xqhjkhokcyt-thhfiepin-hym C-Mn 500 1 cap PO BID 11/28/21 11/22/23 History mg-400 mg capsule (Glucosamine Chondroitin Maximum Strength) aspirin 81 mg tablet,delayed 81 mg PO DAILY 05/30/22 11/22/23 History release (Adult Low Dose Aspirin) hydroxychloroquine 200 mg ta
--- NOTE | 2023-11-22 08:31 | PM.IMHP ---
H&P: HPI History of Present Illness Date/Time: 11/22/23 08:31 Chief Complaint: Shortness of breath Narrative: This is a pleasant 78-year-old gentleman with a past medical history significant for diabetes, stroke, degenerative joint disease, and ALS. The patient provides the following information which is supplemented by his with the patient's permission. For the last year he has had progressive weakness in his upper arms and legs which has been worked up by Dr. Trevino and Dr. Lopez at [facility] who confirmed diagnosis of ALS. Normally he is able to ambulate with a walker and participate in ADLs with moderate difficulty and assistance from his . Over last 10 days he has had progressive weakness to his bilateral upper extremities and lower extremities causing difficulty with ambulation. He is unable to overcome gravity with his upper extremities and unable to overcome resistance in his lower extremities. His also says he has been having hallucinations. He denies headache, dizziness, sore throat, congestion, fever, chills, shortness of breath, difficulty breathing, dysphagia, chest pain, abdominal pain, nausea, vomiting, or diarrhea. He does have a new wound on his right medial thigh that is likely pressure related. In the emergency room CBC was fairly unremarkable, coagulation panel normal, BUN 34, creatinine 0.8, glucose 180, calcium 10.9, magnesium 1.5, and BNP 744. His urinalysis will showed turbid colored urine with 2+ protein trace ketones, negative nitrates, 3+ leukocytes, pyuria, and 4+ bacteria. His viral respiratory panel was negative. ABG showed pH 7.35, pCO2 46 point, PO2 58.7, bicarb 24.9. BiPAP was attempted but the patient could not tolerate and refused. CT of his abdomen and pelvis showed a right kidney stone with no hydronephrotic change, urinary bladder stone, constipation, and atelectatic changes in the lung bases. Urology was consulted in the emergency room for the bladder stones. He received 1 L of normal saline bolus and was started on normal saline at 100 mL an hour and blood in urine cultures were obtained and he was started on Rocephin 1 g for presumed UTI. He was admitting in this setting for further workup of urinary tract infection, weakness, and PT/OT consultation. Review of Systems Review of Systems: All systems reviewed & are unremarkable except as noted in HPI and below PMFSH Past Medical History Medical History ALS (amyotrophic lateral sclerosis) Follows with Dr Lopez at [facility] Degenerative joint disease of cervical and lumbar spine Hx of gastric ulcer Normal colonoscopy 09/01 Stroke Type 2 diabetes mellitus with diabetic polyneuropathy Vitamin D deficiency, unspecified Surgical History Surgical History History of carpal tunnel surgery History of cholecystectomy 2007 History of tonsillectomy Family History Family History Father Acute myocardial infarction Parkinsons Mother Family history of coronary artery disease Diabetes mellitus Other Parkinsons Social History Social History (Updated 11/22/23 @ 13:51 by Kasia Venegas APRN) Social History: Patient lives at home with his , Bj who provides care for him. They have a hospital bed and walker at home but no other equipment. They do not have services coming into the home at this time. He is retired from [employer]. He has 3 children and his has 4 children. His children are all local. He names his , Bj as his emergency contact. He would like to remain FULL CODE. Smoking status: Never smoker Second hand tobacco smoke exposure: No Alcohol intake: former Substance use: never Substance use type: does not use Do You Feel Safe in your Home?: Yes Lack of Transportation: No Lack of Food: Never True Current Housing: I Have Housing Erica
[2023-11-22] MEDS: HYDROXYCHLOROQUINE SULFATE 200 MG TABLET 400 MG PO (10:11)
[2023-11-22] MEDS: MAGNESIUM OXIDE 400 MG TABLET PO (10:12)
[2023-11-22] MEDS: ASPIRIN 81 MG ENTERIC TABLET PO (10:12)
[2023-11-22] MEDS: FENOFIBRATE 160 MG TABLET PO (10:12)
[2023-11-22] MEDS: LORATADINE 5 MG TABLET PO (10:12)
[2023-11-22] MEDS: PANTOPRAZOLE 40 MG TABLET PO ×2 (10:13→16:57)
[2023-11-22] MEDS: PROPRANOLOL HCL 40 MG TABLET PO ×2 (10:13→21:32)
[2023-11-22] MEDS: TAMSULOSIN HCL 0.4 MG CAPSULE PO (10:13)
[2023-11-22] MEDS: ATORVASTATIN 10 MG TABLET PO (10:13)
[2023-11-22] MEDS: MONTELUKAST SODIUM 10 MG TABLET PO (10:16)
[2023-11-22] MEDS: polyethylene glycoL 3350 17 GM POWD.PACK PO (10:16)
[2023-11-22 16:33] LABS: Glucose Point of Care 219 mg/dl (65-105)
[2023-11-22] MEDS: INSULIN ASPART (*BKC) 100 UNITS/ML SUB-Q (16:57)
[2023-11-22 20:55] LABS: Glucose Point of Care 190 mg/dl (65-105)
[2023-11-22] MEDS: METOCLOPRAMIDE HCL 10 MG TABLET PO (21:32)
[2023-11-22] MEDS: SENNA/DOCUSATE SODIUM TABLET 1 TAB PO (21:32)
[2023-11-22] MEDS: SODIUM CHLORIDE 0.9% IV 1,000 ML 75 ML IV CONT (21:32)
[2023-11-23 06:00] VITALS: BP 146/76; PULSE 60; RESP 18; TEMP 37.1; O2SAT 96
[2023-11-23 06:10] LABS: Basophils Absolute Auto 0.1 K/mm3 (0.0-0.1); Basophils Percent Auto 1.3 % (0.2-1.2); Eosinophils Absolute Auto 0.4 K/mm3 (0-0.3); Eosinophils Percent Auto 5.6 % (0-4.4); Hematocrit 42.4 % (42.0-52.0); Hemoglobin 13.1 g/dL (14.0-18.0); Immature Granulocyte Absolute 0.05 K/mm3 (0.00-0.031); Immature Granulocyte Percent A 0.7 % (0-0.5); Lymphocytes Absolute Auto 1.77 K/mm3 (0.9-3.2); Lymphocytes Percent Auto 23.2 % (18.3-44.2); Mean Corpuscular HGB Conc 30.9 g/dl (32-36); Mean Corpuscular Hemoglobin 29.2 pg (26-34); Mean Corpuscular Volume 94.4 fl (80-100); Mean Platelet Volume 11.2 fl (7.4-10.4); Monocytes Absolute Auto 0.9 K/mm3 (0.1-0.6); Monocytes Percent Auto 12.2 % (2.6-8.5); Neutrophils Absolute Auto 4.3 K/mm3 (1.3-6.7); Platelet Count Result 262 k/mm3 (150-375); Red Blood Count 4.49 M/mm3 (4.6-6.20); Red Cell Distribution Width 12.5 % (11.5-14.5); White Blood Count 7.6 K/mm3 (4.5-10.0)
[2023-11-23 06:49] LABS: Alanine Aminotransferase 37 U/L (6-50); Albumin Level 3.3 g/dL (3.5-5.1); Alkaline Phosphatase 57 U/L (38-126); Anion Gap 9 mmol/L (4-12); Aspartate Amino Transferase 33 U/L (17-59); Bilirubin,Total 0.5 mg/dL (0.2-1.3); Blood Urea Nitrogen 20 mg/dL (9-20); Calcium 9.8 mg/dL (8.4-10.2); Carbon Dioxide 28 mmol/L (22-30); Chloride 105 mmol/L (98-107); Estimated CRCL calculation 95 ml/min; Estimated Glomerular Filt Rate > 60; Glucose 166 mg/dL (65-110); Magnesium 1.5 mg/dL (1.6-2.3); Potassium 3.7 mmol/L (3.4-5.0); Sodium 142 mmol/L (137-145)
[2023-11-23 07:33] LABS: Glucose Point of Care 140 mg/dl (65-105)
[2023-11-23] MEDS: FENOFIBRATE 160 MG TABLET PO (08:00)
[2023-11-23] MEDS: polyethylene glycoL 3350 17 GM POWD.PACK PO (08:00)
[2023-11-23] MEDS: HYDROXYCHLOROQUINE SULFATE 200 MG TABLET 400 MG PO (08:00)
[2023-11-23] MEDS: GLIMEPIRIDE 1 MG TABLET PO (08:00)
[2023-11-23] MEDS: PANTOPRAZOLE 40 MG TABLET PO ×2 (08:00→16:54)
[2023-11-23] MEDS: TAMSULOSIN HCL 0.4 MG CAPSULE PO (08:00)
[2023-11-23] MEDS: MONTELUKAST SODIUM 10 MG TABLET PO (08:00)
[2023-11-23] MEDS: ATORVASTATIN 10 MG TABLET PO (08:00)
[2023-11-23] MEDS: MAGNESIUM OXIDE 400 MG TABLET PO (08:00)
[2023-11-23] MEDS: ENOXAPARIN 40 MG/0.4 ML SYRINGE SUB-Q (08:00)
[2023-11-23] MEDS: ASPIRIN 81 MG ENTERIC TABLET PO (08:00)
[2023-11-23] MEDS: PROPRANOLOL HCL 40 MG TABLET PO ×2 (08:01→20:51)
[2023-11-23] MEDS: LORATADINE 5 MG TABLET PO (08:01)
--- NOTE | 2023-11-23 08:14 | PM.IMPN ---
Progress Note: A&P Assessment and Plan (1) UTI (urinary tract infection): Code(s): N39.0 - Urinary tract infection, site not specified Status: Acute Assessment and Plan: Patient presents with progressive weakness, complaints of hallucinations. U/A on arrival was concerning for possible infection, reflex to culture. WBC 9.7, afebrile. Blood culture with no growth to date Rocephin 1 gram started Urine culture is growing E-coli--pansensitive Will transition to Keflex tomorrow (2) ALS (amyotrophic lateral sclerosis): Code(s): G12.21 - Amyotrophic lateral sclerosis Status: Acute Assessment and Plan: Patient with progressive weakness. Likely exacerbation from infection versus progression of ALS. PT/OT consulted May need placement? Currently lives with his who provides care (3) Type 2 diabetes mellitus with diabetic polyneuropathy: Code(s): E11.42 - Type 2 diabetes mellitus with diabetic polyneuropathy Status: Acute Assessment and Plan: Last A1C from 2022 was 6.1 % on glimepiride and metformin SSI low dose, hypoglycemia protocol, glimepiride continues, hold metformin AC/HS accu checks (4) Essential (primary) hypertension: Code(s): I10 - Essential (primary) hypertension Status: Acute Assessment and Plan: History of HTN on propranolol 40 mg BID. Blood pressures reviewed Slightly hypertensives 140-150's but he had received IV fluids. Stop IV fluids and continue to monitor (5) Bladder stones: Code(s): N21.0 - Calculus in bladder Status: Acute Assessment and Plan: Urology was consulted for nonobstructing 7 mm right renal stone which urology feels is of little clinical significance. Not recommending ESWL. Also notes 2 small bladder stones which are not significant. Urology feels this is likely from poor emptying secondary to BPH. Urology is recommending tamsulosin which the patient is already on. Urology signed off. Plan DVT prophylaxis: Enoxaparin GI prophylaxis: Protonix Glycemic control: Low-dose SSI, hypoglycemia protocol Code Status: Long discussion had with patient and family. Patient wishes to remain Full code. Disposition: Patient presents to the emergency room with complaints of hallucinations and progressive weakness over the last 10 days. He was found to have a possible UTI for which she is given IV fluids and IV antibiotics. Urine culture is pending. PT and OT will be consulted. He lives at home with his who provides care for him. They have a hospital bed at home but no services coming in to help her with his care. His weakness is likely exacerbation of his ALS secondary to urinary tract infection. Urine culture is pansensitive e-coli. Planning to discharge tomorrow. Medication reconciliation obtained via the following: Nurse completed on admission The file time of this note does not necessarily represent the time the patient was seen. Advance Care Plan I have confirmed that the patient's Advanced Care Plan is present, code status is documented, or surrogate decision maker is listed in patient medical record.: Yes Medication Reconciliation I have utilized all available resources to obtain, update and review the patients current medications (includes all prescriptions, OTC, herbals, cannabis, and nutritional supplements).: Yes Subjective Date/time seen: 11/23/23 08:14 Interval history: This is a pleasant 78-year-old gentleman with a past medical history significant for diabetes, stroke, degenerative joint disease, and ALS. Over last 10 days he has had progressive weakness to his bilateral upper extremities and lower extremities causing difficulty with ambulation. He is unable to
[2023-11-23 11:32] LABS: Glucose Point of Care 162 mg/dl (65-105)
[2023-11-23 13:54] VITALS: BP 127/66; PULSE 64; RESP 18; TEMP 36.1; O2SAT 94
[2023-11-23 16:44] LABS: Glucose Point of Care 176 mg/dl (65-105)
[2023-11-23 20:05] LABS: Glucose Point of Care 183 mg/dl (65-105)
[2023-11-23 20:15] VITALS: BP 156/79; PULSE 66; RESP 18; TEMP 35.7; O2SAT 96
[2023-11-23] MEDS: SENNA/DOCUSATE SODIUM TABLET 1 TAB PO (20:50)
[2023-11-23 20:51] VITALS: PULSE 71
[2023-11-23] MEDS: METOCLOPRAMIDE HCL 10 MG TABLET PO (20:51)
[2023-11-23] MEDS: TOLNAFTATE 1% POWDER 45 GM BTL 1 APPLIC TOPICAL (20:53)
[2023-11-24 05:36] VITALS: BP 159/79; PULSE 68; RESP 18; TEMP 35.6; O2SAT 94
[2023-11-24 06:18] LABS: Basophils Absolute Auto 0.1 K/mm3 (0.0-0.1); Basophils Percent Auto 1.1 % (0.2-1.2); Eosinophils Absolute Auto 0.5 K/mm3 (0-0.3); Eosinophils Percent Auto 4.9 % (0-4.4); Hematocrit 41.2 % (42.0-52.0); Immature Granulocyte Absolute 0.07 K/mm3 (0.00-0.031); Immature Granulocyte Percent A 0.7 % (0-0.5); Lymphocytes Absolute Auto 2.29 K/mm3 (0.9-3.2); Lymphocytes Percent Auto 24.3 % (18.3-44.2); Mean Corpuscular HGB Conc 31.6 g/dl (32-36); Mean Corpuscular Hemoglobin 29.3 pg (26-34); Mean Platelet Volume 11.6 fl (7.4-10.4); Monocytes Absolute Auto 1.2 K/mm3 (0.1-0.6); Monocytes Percent Auto 12.6 % (2.6-8.5); Neutrophils Absolute Auto 5.3 K/mm3 (1.3-6.7); Neutrophils Percent Auto 56.4 % (45.5-73.1); Platelet Count Result 290 k/mm3 (150-375); Red Blood Count 4.43 M/mm3 (4.6-6.20); Red Cell Distribution Width 12.3 % (11.5-14.5); White Blood Count 9.4 K/mm3 (4.5-10.0)
[2023-11-24 06:29] LABS: Alanine Aminotransferase 35 U/L (6-50); Albumin Level 3.3 g/dL (3.5-5.1); Alkaline Phosphatase 61 U/L (38-126); Anion Gap 5 mmol/L (4-12); Aspartate Amino Transferase 32 U/L (17-59); Bilirubin,Total 0.4 mg/dL (0.2-1.3); Blood Urea Nitrogen 18 mg/dL (9-20); Calcium 9.7 mg/dL (8.4-10.2); Carbon Dioxide 36 mmol/L (22-30); Chloride 100 mmol/L (98-107); Estimated CRCL calculation 95 ml/min; Estimated Glomerular Filt Rate > 60; Glucose 155 mg/dL (65-110); Magnesium 1.4 mg/dL (1.6-2.3); Potassium 3.7 mmol/L (3.4-5.0); Sodium 141 mmol/L (137-145)
[2023-11-24] MEDS: MAGNESIUM OXIDE 400 MG TABLET PO (07:41)
[2023-11-24] MEDS: ENOXAPARIN 40 MG/0.4 ML SYRINGE SUB-Q (07:41)
[2023-11-24] MEDS: ATORVASTATIN 10 MG TABLET PO (07:41)
[2023-11-24] MEDS: polyethylene glycoL 3350 17 GM POWD.PACK PO (07:41)
[2023-11-24] MEDS: CEPHALEXIN 500 MG CAPSULE PO (07:41)
[2023-11-24] MEDS: TAMSULOSIN HCL 0.4 MG CAPSULE PO (07:41)
[2023-11-24] MEDS: LORATADINE 5 MG TABLET PO (07:42)
[2023-11-24] MEDS: MONTELUKAST SODIUM 10 MG TABLET PO (07:42)
[2023-11-24] MEDS: GLIMEPIRIDE 1 MG TABLET PO (07:42)
[2023-11-24] MEDS: PANTOPRAZOLE 40 MG TABLET PO (07:42)
[2023-11-24] MEDS: PROPRANOLOL HCL 40 MG TABLET PO (07:42)
[2023-11-24] MEDS: FENOFIBRATE 160 MG TABLET PO (07:42)
[2023-11-24] MEDS: HYDROXYCHLOROQUINE SULFATE 200 MG TABLET 400 MG PO (07:42)
[2023-11-24] MEDS: ASPIRIN 81 MG ENTERIC TABLET PO (07:42)
[2023-11-24] MEDS: TOLNAFTATE 1% POWDER 45 GM BTL 1 APPLIC TOPICAL (07:43)
[2023-11-24 08:00] LABS: Glucose Point of Care 129 mg/dl (65-105)
[2023-11-24 08:07] VITALS: O2SAT 94
--- NOTE | 2023-11-24 10:57 | PM.DS ---
DS: Admitting Diagnosis Discharge Date 11/23 Admitting Diagnosis weakness, confusion DS: Discharge Diagnosis Discharge Diagnosis (1) UTI (urinary tract infection): Code(s): N39.0 - Urinary tract infection, site not specified Status: Acute Assessment and Plan: Patient presents with progressive weakness, complaints of hallucinations. U/A on arrival was concerning for possible infection, reflex to culture. WBC 9.7, afebrile. Blood culture with no growth to date Rocephin 1 gram started Urine culture is growing E-coli--pansensitive Will transition to Keflex tomorrow (2) ALS (amyotrophic lateral sclerosis): Code(s): G12.21 - Amyotrophic lateral sclerosis Status: Acute Assessment and Plan: Patient with progressive weakness. Likely exacerbation from infection versus progression of ALS. PT/OT consulted May need placement? Currently lives with his who provides care (3) Type 2 diabetes mellitus with diabetic polyneuropathy: Code(s): E11.42 - Type 2 diabetes mellitus with diabetic polyneuropathy Status: Acute Assessment and Plan: Last A1C from 2022 was 6.1 % on glimepiride and metformin SSI low dose, hypoglycemia protocol, glimepiride continues, hold metformin AC/HS accu checks (4) Essential (primary) hypertension: Code(s): I10 - Essential (primary) hypertension Status: Acute Assessment and Plan: History of HTN on propranolol 40 mg BID. Blood pressures reviewed Slightly hypertensives 140-150's but he had received IV fluids. Stop IV fluids and continue to monitor (5) Bladder stones: Code(s): N21.0 - Calculus in bladder Status: Acute Assessment and Plan: Urology was consulted for nonobstructing 7 mm right renal stone which urology feels is of little clinical significance. Not recommending ESWL. Also notes 2 small bladder stones which are not significant. Urology feels this is likely from poor emptying secondary to BPH. Urology is recommending tamsulosin which the patient is already on. Urology signed off. Plan DVT prophylaxis: Enoxaparin GI prophylaxis: Protonix Glycemic control: Low-dose SSI, hypoglycemia protocol Code Status: Long discussion had with patient and family. Patient wishes to remain Full code. Disposition: Patient presents to the emergency room with complaints of hallucinations and progressive weakness over the last 10 days. He was found to have a possible UTI for which she is given IV fluids and IV antibiotics. Urine culture is pending. PT and OT will be consulted. He lives at home with his who provides care for him. They have a hospital bed at home but no services coming in to help her with his care. His weakness is likely exacerbation of his ALS secondary to urinary tract infection. Urine culture is pansensitive e-coli. Planning to discharge tomorrow. Medication reconciliation obtained via the following: Nurse completed on admission The file time of this note does not necessarily represent the time the patient was seen. Advance Care Plan I have confirmed that the patient's Advanced Care Plan is present, code status is documented, or surrogate decision maker is listed in patient medical record.: Yes Medication Reconciliation I have utilized all available resources to obtain, update and review the patients current medications (includes all prescriptions, OTC, herbals, cannabis, and nutritional supplements).: Yes DS: Summary Hospital Course Reason for hospitalization: urinary tract infection Hospital Course: This is a pleasant 78-year-old gentleman with a past medical history significant for diabetes, stroke, degenerative joint disease, and ALS. For the last year he has had
--- NOTE | 2023-11-24 10:59 | PCOTNOTE ---
Attempted OT evaluation; per RN pt. is going home with Home health. Spoke with pt. and family and they have no further questions or concerns related to therapy.
== END 2023-11-24 13:40 | disposition home health service (06) | DRG 690 ==
LOC: ANHED 23:24 → ANH3MEDSUR 23:51
PROVIDERS: Emergency Medicine; Admitting Provider Internal Medicine; Emergency Provider Physician Assistant; PCP Family Medicine Adolescent Medicine; Visit Provider Nurse Practitioner Acute Care
DX: N39.0 Urinary tract infection, site not specified (principal); G12.21 Amyotrophic lateral sclerosis; R44.2 Other hallucinations; B96.20 Unspecified Escherichia coli [E. coli] as the cause of diseases classified elsewhere; R31.9 Hematuria, unspecified; E11.42 Type 2 diabetes mellitus with diabetic polyneuropathy; I10 Essential (primary) hypertension; N20.0 Calculus of kidney; N21.0 Calculus in bladder; I25.10 Atherosclerotic heart disease of native coronary artery without angina pectoris; M47.812 Spondylosis without myelopathy or radiculopathy, cervical region; M47.816 Spondylosis without myelopathy or radiculopathy, lumbar region; Z20.822 Contact with and (suspected) exposure to COVID-19; Z86.73 Personal history of transient ischemic attack (TIA), and cerebral infarction without residual deficits; Z90.49 Acquired absence of other specified parts of digestive tract
CPT/HCPCS: 36415; 36600; 71045; 71046; 74176; 80053; 81001; 82805; 82948; 83735; 83880; 84484; 85025; 85380; 85610; 85730; 87040; 87077; 87086; 87088; 87186; 87637; 93005; 96361; 96365; 96367; 97163; 99285; A9270; G0378; J0696; J1650; J1815; J3475; J7030